=== PATIENT | male | born 1960 | race Caucasian/White ===

== ENCOUNTER → 2019-11-17 19:39 | Outpatient (CLI) | payer OTHER ==
[2014-08-06 00:33] VITALS: BMI 22.0
[~2019-11-17 19:39] MED LIST: HYDROCODONE-APA1 TAB PO; MEDROL DOSE PACK4 MG PO; ROBAXIN-750750 MG PO
== END | disposition home or self-care (01) ==
LOC: D.LABREF 19:39
PROVIDERS: ATTEND Orthopaedic Surgery
DX: M19.011 Primary osteoarthritis, right shoulder (principal)

== ENCOUNTER 2019-11-22 12:18 | Inpatient (IN) | payer OTHER ==
[~2019-11-22] VITALS: Ht 182.9 cm; Wt 95.0 kg
--- NOTE | ~2019-11-22 | OP ---
PATIENT NAME: NATHAN CASILLAS MEDICAL RECORD: [id number] :58 LOCATION:D.M3 D.1210 ADMISSION DATE:12/08/19 SURGEON: ROSANA CHEN MD DATE OF OPERATION: 12/08/2019 PREOPERATIVE DIAGNOSES: 1. Severe arthritis with rotator cuff arthropathy of the right shoulder. 2. Remote history of humeral shaft fracture. POSTOPERATIVE DIAGNOSES: 1. Severe arthritis with rotator cuff arthropathy of the right shoulder. 2. Remote history of humeral shaft fracture. PROCEDURE: Right reverse total shoulder arthroplasty. SURGEON: Rosana Chen MD ANESTHESIOLOGIST: Jaylon Mahmood. INTRAOPERATIVE COMPLICATIONS: None. SUMMARY OF PATHOLOGIC FINDINGS: Essentially, the patient's proximal humerus fracture was not an issue during this operative intervention. It was planned for in case of fracture, but it held nicely as the preoperative CT showed a very solid union. IMPLANTS USED: The Tornier reverse total shoulder arthroplasty, short stem system. ESTIMATED BLOOD LOSS: 300 cc. OPERATIVE SUMMARY IN DETAIL: After obtaining appropriate preoperative orthopedic surgery consent as well as anesthetic consultation, evaluation and clearance, the patient was brought to the operating room and placed on the operating table in supine position. After adequate general laryngeal mask airway was administered, the patient was placed in beach chair position. All pressure points were well padded. He was held firmly to the operating table using the vacuum pack suction system. Right upper extremity and shoulder were then prepped and draped in routine sterile fashion. The arm was held in Trimano arm holding device. At this point, appropriate timeout was taken and agreed upon by all given the patient's unique identifiers. Deltopectoral incision was made, taken down to the cephalic vein, which was seen and protected throughout the entire case. Deltoid was retracted over the humeral head using the brown retractor. Conjoined tendon was released and retracted medially. Subscapularis was taken down in a peel method, retracted out of the way. Biceps tendon was tenotomized and saved for later tenodesis. At this point, the rotator cuff tearing and posterior superior arthropathy was noted. The humeral head was brought forth into the incision and it was very deformed. Humeral head was cut using the humeral head cutting guide for the Tornier reverse total shoulder system. At this point, serial and sequential reaming and broaching were done and the cut protector was left into place on the final size 7 broach. Attention was then turned to the glenoid. Circumferential labrectomy was followed by center pin and reaming for the 29 baseplate. A 29 mm baseplate was affixed nicely on to the glenoid using a single post and 4 peripheral screws. The clearing reamer was used to be sure that there were no residual bone about the OPERATIVE REPORT [id number] NATHAN CASILLAS base of the metaglene, the glenosphere, which was a +2 with an inferior lip, was then tamped into place on to the Copeland taper. Central screw was set, retamped and the central screw was set again. At this point, trials were undertaken with the trial and it was felt that the size 7 x 36, +3 was the appropriate polyethylene insert. This was then inserted into the proximal humerus with good fit and fill. The shoulder was reduced and taken through range of motion and found to be stable in all planes. At this point, the incision was filled with a gram of vancomycin and a gram of tobramycin that was after following copious irrigation. The residual subscap was reapproximated back to the lesser tuberosity. The residual wound was then closed by RUSS Garcia, with #1 Vicryl, 2-0 Vicryl and skin aurea. Sterile dressings were applied. The patient was awakened, taken to the recovery room in stable condition. All final needle and sponge counts were correct. TRANSINT:[id number] Voice Confirmation ID: [id number] DOCUMENT ID: [id number] APRIL BLAIR, ROSANA CHÁVEZ CC: [id number] DICTATION DATE: 12/16/19 1242 MINING MACHINERY ASSEMBLER: 12/16/19 1401 DIS IN 12/09/19 [facility] [address] [place] [id number]
[2019-12-06] MEDS ORDERED: AMOXICILLIN875 MG PO (09:44)
[2019-12-06] MEDS ORDERED: PROTONIX40 MG PO (09:45)
[2019-12-06 10:26] LABS: BASOPHILS 0.3 % (0-2); EOSINOPHILS 0.3 % (0-7); HEMATOCRIT 49.3 % (42.0-54.0); HEMOGLOBIN 16.2 g/dL (13.5-17.5); IMMATURE GRANULOCYTES 0.2 % (0-5); LYMPHOCYTES 15.2 % (15-50); MCH 31.9 pg (26.0-34.0); MCHC 32.9 g/dL (31.0-37.0); MEAN PLATELET VOLUME 12.4 fL (7.4-10.4); MONOCYTES 8.8 % (2-11); NEUTROPHILS 75.2 % (40-80); PLATELET COUNT 176 10x3/uL (130-400); RBC 5.08 10x6/uL (4.20-6.10); RDW 13.3 % (11.5-14.5); WBC 10.7 10x3/uL (4.8-10.8)
[2019-12-06 10:36] LABS: CALC OSMOLALITY 280 mosm/kg (275-300); CALCIUM 8.7 mg/dL (8.5-10.1); CARBON DIOXIDE 27.8 mmol/L (21.0-32.0); CHLORIDE - SERUM 105 mmol/L (98-107); CREATININE - SERUM 0.8 mg/dL (0.6-1.3); GLUCOSE 114 mg/dL (74-106); POTASSIUM - SERUM 4.2 mmol/L (3.5-5.1); SODIUM 140 mmol/L (136-145); UREA NITROGEN 15 mg/dL (7-18); eGFR NON AFRICAN AMERICAN > 90 mL/min (90-120)
[2019-12-06 11:49] LABS: APTT 30.1 SECONDS (22.8-39.4); INR 0.97 (0.85-1.17); PROTIME 12.8 SECONDS (11.6-15.0)
[2019-12-08] VITALS (9 sets, daily range): BP systolic 109–140; BP diastolic 63–97; Ht 182.9 cm; Wt 95.0 kg
[2019-12-08 08:41] LABS: BILIRUBIN NEGATIVE (NEGATIVE); GLUCOSE NEGATIVE (NEGATIVE); KETONE NEGATIVE (NEGATIVE); NITRITE NEGATIVE (NEGATIVE); UROBILINOGEN NORMAL (NORMAL)
--- NOTE | 2019-12-08 08:41 | NUR ---
PLASMA BLADE SET TO 6/8 GROUNDING PAD RIGHT FLANK LOT # [id number] 04/26/2021 TRAFFIC KEPT TO MINIMUM RIGHT ARM CLEANSED WITH HIBECLENS AND ALCOHOL FROM NECK TO FINGER TIPS CIRCUMFERENTIALLY PRIOR TO PREPPING SKIN WITH CHLORAPREP
--- NOTE | 2019-12-08 10:44 | NUR ---
RECIEVED PT FROM PACU PER BED. AWAKE AND ORIENTED BUT DRIFTS TO SLEEP EASILY. OXYGEN AT 2LNC WITH SATS OF 95. DRESSING TO RIGHT SHOULDER CLEAN DRY AND INTACT WITH RIGHT ARM IN SLING. FINDERS WARM AND PINK-ABLE TO WIGGLE THEM BUT CANNOT FEEL THEM. STATES NO PAIN AT PRESENT. SCDS PLACED BILAT. INCENTIVE SPIROMETRY INSTRUCTED AND USED AND PULLED 1500CC. CALL LIGHT IN REACH.
--- NOTE | 2019-12-08 11:29 | NUR ---
PT SAT UP FOR XRAY AND COPIOUS AMOUNTS OF BLOOD FROM UNDER DRESSING NOTED. DRESSING REINFORCED AND DR CHEN CALLED. NEW ORDERS GIVEN
--- NOTE | 2019-12-08 12:45 | NUR ---
PT SITTING UP IN BED EATING LUNCH, REPORTS NO PAIN. WILL CONT TO MONITOR.
--- NOTE | 2019-12-08 19:40 | NUR ---
SITTING UP IN BED EATING MCDONALDS FOOD. STANDING OUTSIDE OF ROOM TALKING TO PT THROUGH WINDOW. PT EXCITABLE AND HYPER. ALERT AND ORIENTED X4. RESP EVEN AND NONLABORED. RT SHOULDER DRSG HAS OLD DRAINAGE NOTED AND MARKED WITH RED MARKER. DENIES PAIN. SCDS IN USE BILAT. USES URINAL. O2 @ 2L/NC. 1/2 NS @ 75 MLHR INFUSING IN LT HAND. NONPROD COUGH NOTED. NO DISTRESS. CL IN REACH.
--- NOTE | 2019-12-08 20:13 | MORECARE ---
CASE MANAGEMENT DISCHARGE SUMMARY PATIENT: NATHAN CASILLAS UNIT: [id number] ADM DATE: 12/08/19 AGE: 58 : 58 SEX: M ROOM/BED: D.1210 AUTHOR: ROSANNA TIM PHYSICIAN: REFERRING PHYSICIAN: ROSANA CHEN MD DATE OF SERVICE: 12/08/19 Discharge Plan Patient Name: NATHAN CASILLAS [facility] [facility] 1960 Planned Disposition: Home Anticipated Discharge Date: Discharge Date: Expected LOS: Initial Reviewer: [email or web address] Initial Review Date: 12/08/2019 Generated: 12/08/19 9:13 pm Patient Name: NATHAN CASILLAS Page 36004 at 2012 All edits/amendments must be made on the electronic document DICTATION DATE: 12/08/192012 TREE DEADENER: SHIRA 12/08/192012 RPT#: [id number] DC DATE: STATUS: ADM IN [facility] [address] [place] [address] END OF REPORT
--- NOTE | 2019-12-08 20:20 | MORECARE ---
CASE MANAGEMENT DISCHARGE SUMMARY PATIENT: NATHAN CASILLAS UNIT: [id number] ADM DATE: 12/08/19 AGE: 58 : 58 SEX: M ROOM/BED: D.1210 AUTHOR: ROSANNA TIM PHYSICIAN: REFERRING PHYSICIAN: ROSANA CHEN MD DATE OF SERVICE: 12/08/19 Discharge Plan Patient Name: NATHAN CASILLAS [facility] [facility] 1960 Planned Disposition: Home Anticipated Discharge Date: Discharge Date: Expected LOS: Initial Reviewer: [email or web address] Initial Review Date: 12/08/2019 Generated: 12/08/19 9:19 pm DCPIA - Discharge Planning Initial Assessment Updated by [email or web address]: Rosemarie Ramirez on 12/08/19 8:14 pm * Is the patient Alert and Oriented? Yes * How many steps to enter\exit or inside your home? * PCP Julia Bennett * Pharmacy [facility] * Preadmission Environment Home with Family * ADLs Independent * Other Equipment PATIENT STATES THEY ARE SUPPOSE TO GET ME A WALKER AND WHATEVER ELSE I NEED * List name and contact numbers for known caregivers / representatives who currently or will assist patient after discharge: [facility] [phone] * Verbal permission to speak to the caregivers and representatives has been obtained from the patient. Yes * Community resources currently utilized None * Additional services required to return to the preadmission environment? No * Can the patient safely return to the preadmission environment? Yes * Has this patient been hospitalized within the prior 30 days at any hospital? No Last DP export: 12/08/19 7:13 pm Patient Name: NATHAN CASILLAS Page 55316 at 2020 All edits/amendments must be made on the electronic document DICTATION DATE: 12/08/192018 DIRECTOR OF RESOURCE DEVELOPMENT: SHIRA 12/08/19 2019 RPT#: [id number] DC DATE: STATUS: ADM IN [facility] [address] [place] [address] END OF REPORT
--- NOTE | 2019-12-08 20:26 | MORECARE ---
CASE MANAGEMENT DISCHARGE SUMMARY PATIENT: NATHAN CASILLAS UNIT: [id number] ADM DATE: 12/08/19 AGE: 58 : 58 SEX: M ROOM/BED: D.1210 AUTHOR: MEETA,DOC PHYSICIAN: REFERRING PHYSICIAN: ROSANA CHEN MD DATE OF SERVICE: 12/08/19 Discharge Plan Patient Name: NATHAN CASILLAS Facility: [facility]:[place] : 1960 Planned Disposition: Home Anticipated Discharge Date: Discharge Date: Expected LOS: Initial Reviewer: [email or web address] Initial Review Date: 12/08/2019 Generated: 12/08/19 9:26 pm Comments DCP- Discharge Planning Updated by [id number]: Rosemarie Ramirez on 12/08/19 7:[address] Patient Name: NATHAN CASILLAS Admission Status: Elective Accout number: [id number] Admission Date: 12-08-2019 : 1960 Admission Diagnosis: Attending: ROSANA CHEN Current LOS: 1 Anticipated DC Date: Planned Disposition: Home Primary Insurance: [employer] MANAGED MEDICAID Discharge Planning Comments: CM met with patient at bedside after explaining CM role and obtaining verbal consent. Patient lives at home with family where he is independent with his care and plans to return there upon discharge. Patient feels this would be a safe discharge. CM discussed availability / needs of home health and medical equipment. CM met with patient at bedside after explaining CM role and obtaining verbal consent. Patient states that they are suppose to get me a walker and whatever else we need. DME [facility] CELINA signed for outpatient therapy [facility]. CM will send orders for therapy and DME orders. Patient denies any discharge needs at this time. Patient states he will have his family drive him home upon discharge. CM will continue to follow and assist as needed with discharge planning / needs. Barrow Worker: Rosemarie Ramirez DCPIA - Discharge Planning Initial Assessment Updated by [email or web address]: Rosemarie Ramirez on 12/08/19 8:14 pm * Is the patient Alert and Oriented? Yes * How many steps to enter\exit or inside your home? * PCP Julia Bennett * Pharmacy [facility] * Preadmission Environment Home with Family * ADLs Independent * Other Equipment PATIENT STATES THEY ARE SUPPOSE TO GET ME A WALKER AND WHATEVER ELSE I NEED * List name and contact numbers for known caregivers / representatives who currently or will assist patient after discharge: INA [facility]- [phone] * Verbal permission to speak to the caregivers and representatives has been obtained from the patient. Yes * Community resources currently utilized None * Additional services required to return to the preadmission environment? No * Can the patient safely return to the preadmission environment? Yes * Has this patient been hospitalized within the prior 30 days at any hospital? No External Providers External Provider: OTHER-OTHER Next Contact Date: Service Request Date: Service Type: Resolution: Reviewer: Comments: Last DP export: 12/08/19 7:20 pm Patient Name: NATHAN CASILLAS Page [phone] at 2025 All edits/amendments must be made on the electronic document DICTATION DATE: 12/08/192025 AQUATICS DIRECTOR: SHIRA 12/08/192025 RPT#: [id number] DC DATE: STATUS: ADM IN [facility] [address] [place] [address] END OF REPORT
--- NOTE | 2019-12-08 21:03 | MORECARE ---
CASE MANAGEMENT DISCHARGE SUMMARY PATIENT: NATHAN CASILLAS UNIT: [id number] ADM DATE: 12/08/19 AGE: 58 : 58 SEX: M ROOM/BED: D.1210 AUTHOR: MEETA,DOC PHYSICIAN: REFERRING PHYSICIAN: ROSANA CHEN MD DATE OF SERVICE: 12/08/19 Discharge Plan Patient Name: NATHAN CASILLAS Facility: [facility]:[place] : 1960 Planned Disposition: Home Anticipated Discharge Date: Discharge Date: Expected LOS: Initial Reviewer: [email or web address] Initial Review Date: 12/08/2019 Generated: 12/08/19 10:03 pm Comments DCP- Discharge Planning Updated by [email or web address]: Rosemarie Ramirez on 12/08/19 7:[address] Patient Name: NATHAN CASILLAS Admission Status: Elective Accout number: [id number] Admission Date: 12-08-2019 : 1960 Admission Diagnosis: Attending: ROSANA CHEN Current LOS: 1 Anticipated DC Date: Planned Disposition: Home Primary Insurance: [employer] MANAGED MEDICAID Discharge Planning Comments: CM met with patient at bedside after explaining CM role and obtaining verbal consent. Patient lives at home with family where he is independent with his care and plans to return there upon discharge. Patient feels this would be a safe discharge. CM discussed availability / needs of home health and medical equipment. CM met with patient at bedside after explaining CM role and obtaining verbal consent. Patient states that they are suppose to get me a walker and whatever else we need. DME [facility] CELINA signed for outpatient therapy [facility]. CM will send orders for therapy and DME orders. Patient denies any discharge needs at this time. Patient states he will have his family drive him home upon discharge. CM will continue to follow and assist as needed with discharge planning / needs. Manufacturing Engineer Chief: Rosemarie Ramirez DCPIA - Discharge Planning Initial Assessment Updated by [email or web address]: Rosemarie Ramirez on 12/08/19 8:59 pm * Is the patient Alert and Oriented? Yes * How many steps to enter\exit or inside your home? * PCP APRIL * Pharmacy [facility] * Preadmission Environment Home with Family * ADLs Independent * Equipment None * List name and contact numbers for known caregivers / representatives who currently or will assist patient after discharge: PRASAD CASILLAS - MOTHER - [phone] * Verbal permission to speak to the caregivers and representatives has been obtained from the patient. Yes * Community resources currently utilized None * Additional services required to return to the preadmission environment? No * Can the patient safely return to the preadmission environment? Yes * Has this patient been hospitalized within the prior 30 days at any hospital? No Last DP export: 12/08/19 7:26 pm Patient Name: NATHAN CASILLAS Page 35241 at 210 All edits/amendments must be made on the electronic document DICTATION DATE: 12/08/192102 MATHEMATICAL ENGINEER: SHIRA 12/08/192102 RPT#: [id number] DC DATE: STATUS: ADM IN [facility] [address] [place] [address] END OF REPORT
--- NOTE | 2019-12-08 21:10 | MORECARE ---
CASE MANAGEMENT DISCHARGE SUMMARY PATIENT: NATHAN CASILLAS UNIT: [id number] ADM DATE: 12/08/19 AGE: 58 : 58 SEX: M ROOM/BED: D.1210 AUTHOR: MEETA,DOC PHYSICIAN: REFERRING PHYSICIAN: ROSANA CHEN MD DATE OF SERVICE: 12/08/19 Discharge Plan Patient Name: NATHAN CASILLAS Facility: [facility]:[place] : 1960 Planned Disposition: Home Anticipated Discharge Date: Discharge Date: Expected LOS: Initial Reviewer: [email or web address] Initial Review Date: 12/08/2019 Generated: 12/08/19 10:10 pm Comments DCP- Discharge Planning Updated by [email or web address]: Rosemarie Ramirez on 12/08/19 8:[address] Patient Name: NATHAN CASILLAS Admission Status: Elective Accout number: [id number] Admission Date: 12-08-2019 : 1960 Admission Diagnosis: Attending: ROSANA CHEN Current LOS: 1 Anticipated DC Date: Planned Disposition: Home Primary Insurance: [employer] MANAGED MEDICAID Discharge Planning Comments: CM met with patient at bedside after explaining CM role and obtaining verbal consent. Patient lives at home with family where he is independent with his care and plans to return there upon discharge. Patient feels this would be a safe discharge. CM discussed availability / needs of home health and medical equipment. Patient denies any discharge needs at this time. Patient states he will have his family drive him home upon discharge. CM will continue to follow and assist as needed with discharge planning / needs. Aircraft Quality Control Inspector: Rosemarie Ramirez DCPIA - Discharge Planning Initial Assessment Updated by [email or web address]: Rosemarie Ramirez on 12/08/19 8:59 pm * Is the patient Alert and Oriented? Yes * How many steps to enter\exit or inside your home? * PCP APRIL * Pharmacy [facility] * Preadmission Environment Home with Family * ADLs Independent * Equipment None * List name and contact numbers for known caregivers / representatives who currently or will assist patient after discharge: PRASAD CASILLAS - MOTHER - [phone] * Verbal permission to speak to the caregivers and representatives has been obtained from the patient. Yes * Community resources currently utilized None * Additional services required to return to the preadmission environment? No * Can the patient safely return to the preadmission environment? Yes * Has this patient been hospitalized within the prior 30 days at any hospital? No Last DP export: 12/08/19 8:04 pm Patient Name: NATHAN CASILLAS Page 81878 at 2109 All edits/amendments must be made on the electronic document DICTATION DATE: 12/08/192109 HOTEL BAGGAGE HANDLER: SHIRA 12/08/192109 RPT#: [id number] DC DATE: STATUS: ADM IN [facility] [address] [place] [address] END OF REPORT
--- NOTE | 2019-12-08 23:16 | NUR ---
PULLED IV OUT. 22G INSERTED IN LT AC AFTER ATTEMPT X5 PER STAFF X2. PT GUSTAVO WELL. MEDICATED WITH PERCOCET FOR C/O SHOULDER PAIN. IS STAYING OUT IN PARKING LOT AND HAS BEEN SENDING PT SNACKS ALL NIGHT AND NOW HAS SENT A COLA AND PHONE CIGARETTE PACKING MACHINE OPERATOR IN. PT HAS BEEN ON PHONE ALL NIGHT OR TALKING TO SPOUSE THROUGH THE WINDOW. CL IN REACH.
[2019-12-09 00:30] VITALS: BP 135/70
--- NOTE | 2019-12-09 01:46 | NUR ---
HAS BEEN AWAKE ALL NIGHT. HAS BEEN ON PHONE AND/OR EATING MOST OF SHIFT. CL IN REACH. NO DISTRESS.
[2019-12-09 04:32] VITALS: BP 141/98
--- NOTE | 2019-12-09 04:43 | NUR ---
HAS BEEN AWAKE MOST OF NIGHT. COUGHING SPELL NOTED. SOME BLOOD OOZING FROM RT SHOULDER INCISION. DRSG REINFORCED. RT ARM IN IMMOBILIZER. ENCOURAGED TO REST RT ARM. STATES HE HAS BEEN TESTED FOR CORONAVIRUS TWICE IN LAST COUPLE OF WEEKS AND WAS NEGATIVE. STATES HE WAS TOLD HE HAD BRONCHITIS BUT STATES HIS MOTHER IS SICK WITH THE SAME THING.
[2019-12-09 06:53] LABS: HEMATOCRIT 41.3 % (42.0-54.0); HEMOGLOBIN 13.2 g/dL (13.5-17.5); MCH 31.5 pg (26.0-34.0); MCV 98.6 fL (80.0-100.0); MEAN PLATELET VOLUME 12.6 fL (7.4-10.4); RBC 4.19 10x6/uL (4.20-6.10); RDW 13.2 % (11.5-14.5); WBC 19.2 10x3/uL (4.8-10.8)
--- NOTE | 2019-12-09 07:30 | NUR ---
AWAKE AND ALERT. ORIENTED X3. NO C/O AT THIS TIME. LUNGS ARE CLEAR BILATERALLY, OCCASSIONAL DRY COUGH NOTED. SKIN IS INTACT WTIHOUT REDNESS EXCEPT INCISION TO RIGHT SHOULDER WHICH HAS A DRY INTACT DRESSING IN PLACE. IV TO LEFT AC IS PATENT WITHOUT REDNESS AT INSERTION SITE. DENIES NEEDS.
[2019-12-09 07:43] VITALS: BP 120/75
[2019-12-09] MEDS ORDERED: PERCOCET 10-321 EAC1 PO (08:58)
[2019-12-09] MEDS ORDERED: GUAIFENESI100 MG/5 M PO (08:58)
--- NOTE | 2019-12-09 09:49 | NUR ---
ALL DISCHARGE INSTRUCTIONS COVERED. ALL QUESTIONS ANSWERED. PT GIVES APPROPRIATE RETURN DEMONSTRATION OF RIGHT SHOULDER EXERCISE PER DISCHARGE INSTRUCTION. DRESSING TO RIGHT SHOULDER CHANGED PER ORDER. (2) EXTRA DRESSINGS GIVEN TO PT FOR DRESSING CARE AT HOME. PT DENIES FURTHER QUESTIONS/CONCERNS/NEEDS. PIV TO LEFT AC REMOVED WITH CATHETER TIP INTACT. DRESSING PLACED. PT STATES THAT HE HAS ALL BELONGINGS. PT REQUESTS TO AMBULATE FROM ROOM FREELY AND REFUSES ASSISTANCE. ALL DISCHAGE PAPERS SIGNED AND PLACED IN PT CHART. PT THANKS THIS NURSE FOR CARE GIVEN.
--- NOTE | 2019-12-09 18:28 | MORECARE ---
CASE MANAGEMENT DISCHARGE SUMMARY PATIENT: NATHAN CASILLAS UNIT: [id number] ADM DATE: 12/08/19 AGE: 58 : 58 SEX: M ROOM/BED: D.1210 AUTHOR: MEETA,DOC PHYSICIAN: REFERRING PHYSICIAN: ROSANA CHEN MD DATE OF SERVICE: 12/09/19 Discharge Plan Patient Name: NATHAN CASILLAS Facility: [facility]:[place] : 1960 Planned Disposition: Home Anticipated Discharge Date: Discharge Date: 12/09/2019 Expected LOS: Initial Reviewer: [email or web address] Initial Review Date: 12/08/2019 Generated: 12/09/19 7:28 pm DCP- Discharge Planning Updated by [email or web address]: Roesmarie Ramirez on 12/08/19 8:[address] Patient Name: NATHAN CASILLAS Admission Status: Elective Accout number: [id number] Admission Date: 12-08-2019 : 1960 Admission Diagnosis: Attending: ROSANA CHEN Current LOS: 1 Anticipated DC Date: Planned Disposition: Home Primary Insurance: [employer] MANAGED MEDICAID Discharge Planning Comments: CM met with patient at bedside after explaining CM role and obtaining verbal consent. Patient lives at home with family where he is independent with his care and plans to return there upon discharge. Patient feels this would be a safe discharge. CM discussed availability / needs of home health and medical equipment. Patient denies any discharge needs at this time. Patient states he will have his family drive him home upon discharge. CM will continue to follow and assist as needed with discharge planning / needs. Diet Assistant: Rosemarie Ramirez DCPIA - Discharge Planning Initial Assessment Updated by [email or web address]: Rosemarie Ramirez on 12/08/19 8:59 pm * Is the patient Alert and Oriented? Yes * How many steps to enter\exit or inside your home? * PCP APRIL * Pharmacy [facility] * Preadmission Environment Home with Family * ADLs Independent * Equipment None * List name and contact numbers for known caregivers / representatives who currently or will assist patient after discharge: PRASAD CASILLAS - MOTHER - [phone] * Verbal permission to speak to the caregivers and representatives has been obtained from the patient. Yes * Community resources currently utilized None * Additional services required to return to the preadmission environment? No * Can the patient safely return to the preadmission environment? Yes * Has this patient been hospitalized within the prior 30 days at any hospital? No Last DP export: 12/08/19 8:10 pm Patient Name: NATHAN CASILLAS Page 21644 at 1828 All edits/amendments must be made on the electronic document DICTATION DATE: 12/09/191827 MONEY LAUNDERING INVESTIGATOR: SHIRA 12/09/191827 RPT#: [id number] DC DATE:12/09/19 STATUS: DIS IN [facility] [address] [place] [address] END OF REPORT
== END 2019-12-09 10:11 | disposition home or self-care (01) | DRG 483 ==
LOC: D.SDCHOLD 12-08 06:59 → D.M3 12-08 06:59 → D.M2 12-08 07:45 → D.M3 12-08 09:36 → D.M2 12-08 09:45 → D.M3 12-09 10:11
PROVIDERS: ADMIT Orthopaedic Surgery; ATTEND Orthopaedic Surgery
PROC: 0RRJ00Z Replacement of Right Shoulder Joint with Reverse Ball and Socket Synthetic Substitute, Open Approach (ICD-10-PCS; principal; 2019-12-08 07:45)
DX: M13.811 Other specified arthritis, right shoulder (principal)

== ENCOUNTER → 2019-12-06 13:54 | Outpatient (CLI) | payer OTHER ==
[2014-08-06 00:33] VITALS: BMI 22.0
[~2019-12-06 13:54] MED LIST changes: +AMOXICILLIN875 MG PO; +PROTONIX40 MG PO
== END | disposition home or self-care (01) ==
LOC: D.CT 13:54
PROVIDERS: ATTEND Orthopaedic Surgery
DX: S42.201A Unspecified fracture of upper end of right humerus, initial encounter for closed fracture (principal)

== ENCOUNTER 2019-12-10 22:45 | Emergency (ER) | payer OTHER ==
[~2019-12-10] VITALS: Ht 182.9 cm; Wt 98.2 kg
[~2019-12-10 22:45] MED LIST changes: +GUAIFENESI100 MG/5 M PO; +PERCOCET 10-321 EAC1 PO
[2019-12-10 22:55] VITALS: BP 139/87; Ht 182.9 cm; Wt 98.2 kg
== END 2019-12-10 23:25 | disposition home or self-care (01) ==
LOC: D.ER 22:45
DX: G89.18 Other acute postprocedural pain (principal); K21.9 Gastro-esophageal reflux disease without esophagitis; Z96.611 Presence of right artificial shoulder joint

== ENCOUNTER 2019-12-19 00:03 | Inpatient (IN) | payer OTHER ==
[2019-12-19] VITALS (7 sets, daily range): BP systolic 113–150; BP diastolic 65–97; Ht 182.9 cm; Wt 98.2 kg
[~2019-12-19] VITALS: Ht 182.9 cm; Wt 98.2 kg
[2019-12-19 01:00] LABS: BASOPHILS 0.3 % (0-2); EOSINOPHILS 1.9 % (0-7); HEMATOCRIT 41.8 % (42.0-54.0); HEMOGLOBIN 13.6 g/dL (13.5-17.5); IMMATURE GRANULOCYTES 0.3 % (0-5); LYMPHOCYTES 18.7 % (15-50); MCH 31.9 pg (26.0-34.0); MCHC 32.5 g/dL (31.0-37.0); MCV 98.1 fL (80.0-100.0); MEAN PLATELET VOLUME 11.1 fL (7.4-10.4); MONOCYTES 7.9 % (2-11); NEUTROPHILS 70.9 % (40-80); PLATELET COUNT 206 10x3/uL (130-400); RBC 4.26 10x6/uL (4.20-6.10); RDW 13.5 % (11.5-14.5); WBC 9.9 10x3/uL (4.8-10.8)
[2019-12-19 01:49] LABS: ERYTHROCYTE SEDIMENTATION RATE 48 mm/hr (0-20)
--- NOTE | 2019-12-19 03:15 | NUR ---
RECEIVED PT TO FLOOR FROM ER VIA WHEELCHAIR. C/O RIGHT SHOULDER PAIN 05/13. SET UP DILAUDID INSTRUMENT REPAIR SPECIALIST AND INSTRUCTED ON USE. RIGHT SHOULDER INCISION HAS 17 KUMAR WITH MINIMAL REDNESS. DISTAL END OF INCISION APPEARS "PUFFY". REVIEWED HISTORY AND HOME MEDS. COMPLETE ASSESSMENT PER FLOW-SHEET. PT PENDING SURGERY. WILL CONTINUE TO MONITOR.
[2019-12-19] MEDS ORDERED: AUGMENTIN 875-11 TAB PO (03:29)
[2019-12-19] MEDS ORDERED: ALBUTEROL SULF8.5 GM INH (03:33)
--- NOTE | 2019-12-19 08:00 | NUR ---
ALERT AND ORIENTED X4. ERYTHEMA AND EDEMA NOTED AT INCISION SITE RIGHT SHOULDER WITH KUMAR. IV TO LEFT A/C WITH ORACLE TECHNICAL ARCHITECT DILAUDID AT PRESCRIBED RATE. RESP EVEN AND UNLABORED WITH RALES AND RHONCHI NOTED TO BUQ ANTERIOR WITH NONE PRODUCTIVE COUGH. NOEW ORDER FOR UPDRAFTS NOTED.STATES ORACLE TECHNICAL ARCHITECT IS ASSSISTING WITH PAIN RELIEF 11/11.
[2019-12-19 11:46] LABS: ALKALINE PHOSPHATASE 98 U/L (30-120); ALT (SGPT) 32 U/L (10-68); BILIRUBIN - TOTAL 0.64 mg/dL (0.2-1.3); CALC OSMOLALITY 281 mosm/kg (275-300); CARBON DIOXIDE 29.8 mmol/L (21.0-32.0); CHLORIDE - SERUM 103 mmol/L (98-107); CREATININE - SERUM 0.9 mg/dL (0.6-1.3); GLUCOSE 112 mg/dL (74-106); POTASSIUM - SERUM 4.1 mmol/L (3.5-5.1); PROTEIN - SERUM 6.9 g/dL (6.4-8.2); SODIUM 139 mmol/L (136-145); UREA NITROGEN 22 mg/dL (7-18); eGFR NON AFRICAN AMERICAN > 90 mL/min (90-120)
[2019-12-19 12:45] LABS: NEUT - BF 35 %
[2019-12-19 12:46] LABS: MACROPHAGES BF 39 %
[2019-12-19 18:22] LABS: UDS - AMPHET NEGATIVE QUAL (NEGATIVE); UDS - BARB NEGATIVE QUAL (NEGATIVE); UDS - BENZO NEGATIVE QUAL (NEGATIVE); UDS - COCAINE NEGATIVE QUAL (NEGATIVE); UDS - OPIATE POSITIVE QUAL (NEGATIVE); UDS - PCP NEGATIVE QUAL (NEGATIVE); UDS - THC NEGATIVE QUAL (NEGATIVE)
[2019-12-20] VITALS (7 sets, daily range): BP systolic 110–153; BP diastolic 65–96
[2019-12-20 06:08] LABS: BASOPHILS 0.3 % (0-2); EOSINOPHILS 1.8 % (0-7); HEMATOCRIT 43.1 % (42.0-54.0); HEMOGLOBIN 13.6 g/dL (13.5-17.5); IMMATURE GRANULOCYTES 0.3 % (0-5); LYMPHOCYTES 19.5 % (15-50); MCH 31.1 pg (26.0-34.0); MCHC 31.6 g/dL (31.0-37.0); MCV 98.4 fL (80.0-100.0); MEAN PLATELET VOLUME 10.7 fL (7.4-10.4); NEUTROPHILS 69.1 % (40-80); PLATELET COUNT 232 10x3/uL (130-400); RBC 4.38 10x6/uL (4.20-6.10); RDW 13.6 % (11.5-14.5); WBC 9.6 10x3/uL (4.8-10.8)
[2019-12-20 06:23] LABS: ALBUMIN 3.2 g/dL (3.4-5.0); ALKALINE PHOSPHATASE 101 U/L (30-120); ALT (SGPT) 29 U/L (10-68); CALC OSMOLALITY 279 mosm/kg (275-300); CALCIUM 8.2 mg/dL (8.5-10.1); CARBON DIOXIDE 25.2 mmol/L (21.0-32.0); CHLORIDE - SERUM 106 mmol/L (98-107); CREATININE - SERUM 0.9 mg/dL (0.6-1.3); GLUCOSE 90 mg/dL (74-106); POTASSIUM - SERUM 4.2 mmol/L (3.5-5.1); PROTEIN - SERUM 6.7 g/dL (6.4-8.2); SODIUM 140 mmol/L (136-145); eGFR NON AFRICAN AMERICAN > 90 mL/min (90-120)
[2019-12-20 06:24] LABS: UREA NITROGEN 16 mg/dL (7-18)
--- NOTE | 2019-12-20 07:50 | NUR ---
HAS BEEN TALKING ON PHONE. PATIENT IS WITHOUT DISTRESS
--- NOTE | 2019-12-20 12:59 | MORECARE ---
CASE MANAGEMENT DISCHARGE SUMMARY PATIENT: NATHAN CASILLAS UNIT: [id number] ADM DATE: 12/19/19 AGE: 59 : 58 SEX: M ROOM/BED: D.2231 AUTHOR: ROSANNA TIM PHYSICIAN: REFERRING PHYSICIAN: KYLER SERRANO MD DATE OF SERVICE: 12/20/19 Discharge Plan Patient Name: NATHAN CASILLAS Facility: [facility]:[place] : 1960 Planned Disposition: Anticipated Discharge Date: Discharge Date: Expected LOS: Initial Reviewer: [email or web address] Initial Review Date: 12/20/2019 Generated: 12/20/19 1:59 pm Comments DCP- Discharge Planning Updated by [email or web address]: Tuyet Russ on 12/20/19 11:[address] Patient Name: NATHAN CASILLAS Admission Status: ER Accout number: [id number] Admission Date: 12-19-2019 : 1960 Admission Diagnosis: Attending: KYLER SERRANO Current LOS: 1 Anticipated DC Date: Planned Disposition: [facility] Discharge Planning Comments: PATIENT IN SURGERY. I WILL ASSES DC NEEDS AFTERWARDS. Pin Machine Operator: Tuyet Russ Patient Name: NATHAN CASILLAS Page 57821 at 1259 All edits/amendments must be made on the electronic document DICTATION DATE: 12/20/19 125 SHAKER REPAIRER: SHIRA 12/20/19 1259 RPT#: [id number] DC DATE: STATUS: ADM IN [facility] [address] [place] [address] END OF REPORT
--- NOTE | 2019-12-20 20:00 | NUR ---
ALERT RESTING IN BED REPORTS GOOD PAIN CONTROL WITH PAC, DRESSING TO RIGHT SHOULDER C/D/I KRISTA DRAIN IN PLACE SMALL AMOUT OF DRAINAGE NOTED, DENIES NEEDS AT THIS TIME, SEE SHIFT ASSESSMENT, CALL LIGHT IN REACH
[2019-12-21 01:30] VITALS: BP 134/41
[2019-12-21 06:27] VITALS: BP 107/66
--- NOTE | 2019-12-21 07:00 | NUR ---
ALERT AND ORIENTED, SITTING UP ON THE SIDE OF THE BED. NO C/O PAIN. NO S/S OF ACUTE DISTRESS NOTED. DRESSING TO RIGHT SHOULDER, C/D/I AND [place] VAC. IV TO LEFT HAND, NS INFUSING @ 50ML/HR. SITE PATENT WITHOUT REDNESS OR SWELLING. PATIENT STATED HE IS GOING HOME TODAY WHETHER THE PHYSICIAN SAYS OKAY OR NOT. NOTIFIED DESIGN EDITOR AND ANTONY CERONN. DENIES ANY NEEDS AT THIS TIME. CALL LIGHT IN REACH. WILL CONTINUE TO MONITOR.
[2019-12-21 08:00] VITALS: BP 134/68
[2019-12-21 08:36] LABS: BASOPHILS 0.1 % (0-2); EOSINOPHILS 0 % (0-7); HEMATOCRIT 42.5 % (42.0-54.0); HEMOGLOBIN 13.5 g/dL (13.5-17.5); IMMATURE GRANULOCYTES 0.3 % (0-5); LYMPHOCYTES 4.6 % (15-50); MCH 31.5 pg (26.0-34.0); MCHC 31.8 g/dL (31.0-37.0); MCV 99.3 fL (80.0-100.0); MEAN PLATELET VOLUME 11.7 fL (7.4-10.4); MONOCYTES 3.2 % (2-11); NEUTROPHILS 91.8 % (40-80); PLATELET COUNT 206 10x3/uL (130-400); RBC 4.28 10x6/uL (4.20-6.10); RDW 13.8 % (11.5-14.5)
[2019-12-21 08:37] LABS: WBC 16.1 10x3/uL (4.8-10.8)
[2019-12-21 08:54] LABS: ALBUMIN 3.1 g/dL (3.4-5.0); ANION GAP 13.1 mmol/L (8-16); BILIRUBIN - TOTAL 0.5 mg/dL (0.2-1.3); CALCIUM 8.6 mg/dL (8.5-10.1); CREATININE - SERUM 1.1 mg/dL (0.6-1.3); POTASSIUM - SERUM 4.1 mmol/L (3.5-5.1); PROTEIN - SERUM 7.2 g/dL (6.4-8.2)
--- NOTE | 2019-12-21 09:45 | NUR ---
PATIENT STATED HE IS NOT GOING TO LET THIS NURSE INFUSE ANY OF THE ANTIBIOTICS AND WANTS TO GO HOME DUE TO HIS MOTHER NEEDING HIM AT HOME. THIS NURSE CALLED ANTONY CARABALLO AND EXPLAINED TO HER WHAT THE SITUATION IS. ANTONY TOLD THIS NURSE TO DC HEMAVAC AND GET PATIENT READY FOR DISCHARGE.
[2019-12-21] MEDS ORDERED: BACTRIM 400-801 TAB PO (10:58)
--- NOTE | 2019-12-21 11:38 | NUR ---
DISCHARGE PATIENT HOME WITH FAMILY. DISCONTINUED IV CATHETER TIP INTACT. DISCONTINUED HEMAVAC PER PHYSICIAN ORDERS. WENT OVER DISCHARGE INSTRUCTIONS, PATIENT VERBALIZED UNDERSTANDING. DENIES ANYTHING FURTHER.
--- NOTE | 2019-12-21 12:45 | MORECARE ---
CASE MANAGEMENT DISCHARGE SUMMARY PATIENT: NATHAN CASILLAS UNIT: [id number] ADM DATE: 12/19/19 AGE: 59 : 58 SEX: M ROOM/BED: D.2231 AUTHOR: ROSANNA TIM PHYSICIAN: REFERRING PHYSICIAN: KYLER SERRANO MD DATE OF SERVICE: 12/21/19 Discharge Plan Patient Name: NATHAN CASILLAS [facility] [facility] 1960 Planned Disposition: Anticipated Discharge Date: Discharge Date: 12/21/2019 Expected LOS: Initial Reviewer: [email or web address] Initial Review Date: 12/20/2019 Generated: 12/21/19 1:45 pm Comments DCP- Discharge Planning Updated by [email or web address]: Tueyt Russ on 12/20/19 11:[address] Patient Name: NATHAN CASILLAS Admission Status: ER Accout number: [id number] Admission Date: 12-19-2019 : 1960 Admission Diagnosis: Attending: KYLER SERRANO Current LOS: 1 Anticipated DC Date: Planned Disposition: Primary Insurance: [facility] Discharge Planning Comments: PATIENT IN SURGERY. I WILL ASSES DC NEEDS AFTERWARDS. Operations Business Partner: Tuyet Russ Last DP export: 12/20/19 11:59 a Patient Name: NATHAN CASILLAS Page [id number] at 1245 All edits/amendments must be made on the electronic document DICTATION DATE: 12/21/19 1245 OUTBOUND TELEMARKETING REPRESENTATIVE: SHIRA 12/21/19 1245 RPT#: [id number] DC DATE:12/21/19 STATUS: DIS IN [facility] [address] [place] [address] END OF REPORT
--- NOTE | 2019-12-22 08:08 | OP ---
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 POSTOPERATIVE DIAGNOSIS: Residual hematoma of the left shoulder status post total shoulder arthroplasty. PROCEDURE: Evacuation of hematoma. SURGEON: Rosana Chen MD ANESTHESIA: General. INTRAOPERATIVE COMPLICATIONS: None. SUMMARY OF PATHOLOGIC FINDINGS: The patient had what appeared to be pure serosanguineous fluid previous tap had failed to elucidate markers of infection are grow out any bacteria. The patient did appear to have a postoperative hematoma that was evacuated. A drain was placed. OPERATIVE SUMMARY IN DETAIL: After obtaining the appropriate preoperative orthopedic surgery consent as well as anesthetic consultation, the patient was brought to the operating room and placed on the operating table in supine position. After general laryngeal mask airway was administered, the patient was placed in the beach chair position. All pressure points were well padded. He was held firmly to the operating table using the vacuum pack suction system. Right upper extremity and shoulder were then prepped and draped in routine sterile fashion. Previously placed aurea were removed. Upon incision of the previously placed subcutaneous sutures, copious amount of serosanguineous hematoma was evacuated. The entire incision was completely opened and the entire hematoma was evacuated. Pulsatile lavage irrigation was carried out for a total of 6 liters. Having completed this, a gram of vancomycin and gram of tobramycin were placed into the wound. A small 1.8 Hemovac drain was placed. The wound was then closed with #1 Vicryl, 2-0 Vicryl, and skin aurea with a watertight seal. The vacuum was applied and there was no leakage. Final skin closure achieved with skin aurea. Sterile dressings were applied. The patient was awakened, taken to recovery room in stable condition. All final needle and sponge counts were correct. TRANSINT:[id number] Voice Confirmation ID: [id number] DOCUMENT ID: [id number] ROSANA CHEN MD at 0808 CC: [id number] DICTATION DATE: 12/20/192007 CATTYMAN: 12/21/19 0103 DIS IN 12/21/19 [facility] [address] [place] [address]
[2019-12-22 10:10] LABS: FUNGUS STAIN Final report (())
== END 2019-12-21 11:37 | disposition home or self-care (01) | DRG 920 ==
LOC: D.ER 00:03 → OBSVTIME 02:21 → D.MS 02:21
PROVIDERS: Orthopaedic Surgery; Surgery; ADMIT Family Medicine; ATTEND Family Medicine
PROC: 0H9CXZZ Drainage of Left Upper Arm Skin, External Approach (ICD-10-PCS; principal; 2019-12-20 13:15)
DX: L76.32 Postprocedural hematoma of skin and subcutaneous tissue following other procedure (principal); F17.203 Nicotine dependence unspecified, with withdrawal; E44.0 Moderate protein-calorie malnutrition; Y83.9 Surgical procedure, unspecified as the cause of abnormal reaction of the patient, or of later complication, without mention of misadventure at the time of the procedure; Z68.29 Body mass index [BMI] 29.0-29.9, adult

== ENCOUNTER 2019-12-26 14:41 | Emergency (ER) | payer OTHER ==
[~2019-12-26] VITALS: Ht 182.9 cm; Wt 99.1 kg
[~2019-12-26 14:41] MED LIST changes: +ALBUTEROL SULF8.5 GM INH; +AUGMENTIN 875-11 TAB PO; +BACTRIM 400-801 TAB PO
[2019-12-26 15:01] VITALS: Ht 182.9 cm; Wt 99.1 kg
[2019-12-26] MEDS ORDERED: HYDROCODON-ACE1 EA10 PO (16:35)
[2019-12-26 17:36] VITALS: BP 137/78
== END 2019-12-26 17:37 | disposition home or self-care (01) ==
LOC: D.ER 14:41
DX: M54.5 Low back pain (principal); J45.909 Unspecified asthma, uncomplicated; Z72.0 Tobacco use; K21.9 Gastro-esophageal reflux disease without esophagitis